=== PATIENT | female | born 1950 | race Caucasian/White ===

== ENCOUNTER → 2018-11-24 | Day surgery (SDC) | payer MEDICARE, OTHER ==
[~2018-11-24] MED LIST: Lactated Ringers 1,000 ML IV SCH; Propofol 200 MG/20 ML SDV IV ONE
--- NOTE | 2018-11-24 13:58 | OR ---
DATE OF OPERATION: 11/24/2018 PREOPERATIVE DIAGNOSIS: POSITIVE COLOGUARD. POSTOPERATIVE DIAGNOSIS: 1. COLON POLYPS X6 WITH ONE LARGE 2 CM RECTAL POLYP. 2. MILD SIGMOID DIVERTICULOSIS. SURGEON: Robinson Nolasco MD PROCEDURE: FULL-LENGTH COLONOSCOPY WITH SNARE POLYPECTOMY X4, FORCEPS POLYP REMOVAL X2. ANESTHESIA: MAC. COMPLICATIONS: None. SPECIMEN: Colon polyps x6. See report. To note, 1 very large tubulovillous lesion in the rectal vault. FINDINGS: 1. Full-length colonoscopy. 2. Mild sigmoid diverticulosis. 3. Colon polyps x6. RECOMMENDATIONS: Followup colonoscopy in 6 months. INDICATIONS: The patient had a positive Cologuard with her primary provider, Evelin Fulton. She has never had a prior endoscopy. Evelin sent her for diagnostic colonoscopy. DESCRIPTION OF PROCEDURE: The patient was prepped and draped and placed in the left lateral decubitus position. A lubricated Olympus colonoscope was inserted and with ease advanced to the cecum. Direct visualization of the ileocecal valve and appendiceal orifice were accomplished. The bowel prep was adequate. Upon withdrawal of the scope, the cecum and ascending colon were benign. At the hepatic flexure and in the proximal transverse colon, the patient had 2 small flat sessile polyps, each removed with a forceps biopsy x2 in their entirety. A third one was in the mid transverse colon, also removed with a forceps. The rest of the transverse colon and descending colon appeared benign. The patient does have scattered diverticula throughout the sigmoid area without any acute inflammatory changes. 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 In that region, we were able to get a snare around it and get down to the bottom of the stalk and removed it without any problem. We brought it out through the rectal vault. Two more reasonably sized polyps were present in the rectal vault as well, also removed with snare and suctioned into polyp trap #1 without any difficulty. The patient appears to have scattered very small hyperplastic polyps right in the proximal rectum as well. We left those alone at this time. Retroflexion of the scope in the rectum showed no perianal lesions. Air was suctioned and the scope removed without complication. MARV/XIOMARA /[id number]
== END ==
LOC: CC.SDS 07:43
PROVIDERS: ATTEND Family Medicine
DX: D12.3 Benign neoplasm of transverse colon (principal); D12.8 Benign neoplasm of rectum; K62.1 Rectal polyp; K57.30 Diverticulosis of large intestine without perforation or abscess without bleeding; I10 Essential (primary) hypertension; I48.91 Unspecified atrial fibrillation; E11.9 Type 2 diabetes mellitus without complications; J43.9 Emphysema, unspecified; Z79.01 Long term (current) use of anticoagulants; Z79.899 Other long term (current) drug therapy
CPT/HCPCS: 00811; 45385; J2704; J7120

== ENCOUNTER 2019-04-15 07:55 | Emergency (ER) | payer MEDICARE, OTHER ==
[2019-04-15] MEDS ORDERED: Furosemide 40 MG/4 ML VIAL ONE (08:18)
[2019-04-15] MEDS ORDERED: Sodium Chloride 0.9% 100 ML ONE ×2 (08:19→09:43)
[2019-04-15] MEDS: Diltiazem 25 MG/5 ML SDV IVPUSH ONE (08:27)
[2019-04-15 08:59] LABS: CHLORIDE,CL 91 mEq/L (98-106); SODIUM,NA 126 mEq/L (136-145)
[2019-04-15] MEDS ORDERED: Cefepime 1 GM in Sodium Chloride 0.9% 50 ML IV ONE (09:31)
[2019-04-15 09:42] LABS: BICARBONATE,ARTERIAL 34.6 mm/L (22.0-26.0); O2 DELIVERY DEVICE NON REBR MASK; O2 SATURATION ARTERIAL 95 % (95-98); PCO2 ARTERIAL 119 mm/Hg0 (35-45); PO2 ARTERIAL 112 mm/Hg (80-100)
--- NOTE | 2019-04-15 09:45 | EDM.PDOC ---
ED HPI GENERAL MEDICAL PROBLEM - General Chief Complaint: Respiratory Problem Stated Complaint: Resp distress Time Seen by Provider: 04/15/19 08:00 Source of Information: Reports: Patient History Limitations: Reports: Altered Mental Status, Respiratory Distress - History of Present Illness INITIAL COMMENTS - FREE TEXT/NARRATIVE: This patient is a 68 year old female that presents to the ER via EMS. EMS reports that patient was awake and alert, then near arrival to the hospital the patient became unresponsive. They report that was short of breath and was complaining of being short of breath when on the ambulance. The reports the patient was fine last night, patient woke him this morning and did report she was short of breath. He reports she looked more short of breath than her usual. reports patient had stopped taking her Lasix the last couple of days because she urinates to much. He reports she also stopped her Eliquis the past day or so. reports she is very stubborn. Upon my arrival into the ER. Patient is HR in 160s irregular. She in respiratory distress, but saturation is 90% on 15L NRB. She appears mottled all over. She is not responding to me verbal, following commands, or responding to painful stimuli of sternal rub. PLEASE REFER TO [facility] REPORT FOR FURTHER DOCUMENTATION. Onset: Today Onset Date: 04/15/19 Severity: Severe Improves with: Reports: None Worsens with: Reports: None Associated Symptoms: Reports: Shortness of Breath - Related Data Allergies Allergy/AdvReac Type Severity Reaction Status Date / Time No Known Allergies Allergy Verified 11/24/18 08:05 Home Meds: Home Meds Acetaminophen [Tylenol] 325 mg PO Q4H PRN 11/21/18 [History] Albuterol [Ventolin HFA] 1 - 2 puff INH Q4H PRN 11/21/18 [History] Apixaban [Eliquis] 5 mg PO BID 11/21/18 [History] Budesonide/Formoterol [Symbicort 160-4.5 MCG] 2 puff INH BID 11/21/18 [History] Diltiazem HCl [Diltiazem ER] 180 mg PO DAILY 11/21/18 [History] Furosemide 40 mg PO BID 11/21/18 [History] Ipratropium/Albuterol Sulfate [Iprat-Albut 0.5-3(2.5) mg/3 ml] 3 ml NEB QID PRN 11/21/18 [History] Metoprolol Tartrate 50 mg PO BID 11/21/18 [History] ED ROS GENERAL - Review of Systems Review Of Systems: Unable To Obtain Reason Not Obtained: Patient is unresponsive. Respiratory Distress: Only ROS SOA EMS. Respiratory: Reports: Shortness of Breath ED EXAM, GENERAL - Physical Exam Exam: See Below Exam Limited By: Respiratory Distress General Appearance: Severe Distress, Obese Eye Exam: Bilateral Eye: Normal Inspection, PERRL Ears: Normal External Exam, Normal Canal, Normal TMs Ear Exam: Bilateral Ear: Auricle Normal, Canal Normal, TM normal Nose: Normal Inspection, No Blood Throat/Mouth: No: Perioral Cyanosis Head: Atraumatic, Normocephalic Neck: Normal Inspection Respiratory/Chest: Respiratory Distress, Crackles (Severe Throughout), Retractions Cardiovascular: Tachycardia, Irregularly Irregular Peripheral Pulses: 1+: Radial (L), Radial (R), Posterior Tibial (L), Posterior Tibial (R), Dorsalis Pedis (L), Dorsalis Pedis (R) GI/Abdominal: Other (Obese) Extremities: Mottled (All extremeties, cool to touch. ) Neurological: Unresponsive Skin Exam: Mottled Course - Orders/Labs/Meds Orders: Active Orders 24 hr Category Date Time Status Chest 1V Frontal [CR] Routine Exams 04/15/19 Taken CULTURE BLOOD [BC] Stat Lab 04/15/19 08:38 Results LACTIC ACID [CHEM] Stat Lab 04/15/19 08:38 Received Labs: Laboratory Tests 04/15/19 04/15/19 04/15/19 Range/Units 08:38 08:38 08:38 WBC 8.2 (5.0-10.0) 10^3/uL RBC 5.76 H (4.00-5.50) 10^6/uL Hgb 18.6 H* (12.0-16.0) g/dL Hct 56.9 H (37.0-47.0) % MCV 98.8 H (82.0-94.0) fL MCH 32.3 H (27.0-32.0) pg MCHC 32.7 L (33.0-38.0) g/dL RDW Coeff of Lexie 14.4 (11.0-15.0) % Plt Count 142 L (150-400) 10^3/uL Neut % (Auto) 87.8 H (35-85) % Lymph % (Auto) 7.5 L (10-55) % [place] % (Auto) 4.7 (0-16) % Eos % (Auto) 0 (0-5) % Baso % (Auto) 0 (0-3) % Neut # (Auto) 7.21 H (1.80-7.00) 10^3/uL Lymph # (Auto) 0.62 L (1.00-4.80) 10^3/uL [place] # (Auto) 0.39 (0.00-0.80) 10^3/uL Eos # (Auto) 0.00 (0.00-0.45) 10^3/uL Baso # (Auto) 0.00 10^3/uL PT 14.3 H (9.7-12.3) SEC INR 1.42 H (0.92-1.18) APTT 24.0 (23.2-32.3) SEC ABG pH (7.35-7.45) ABG pCO2 (35-45) mm/Hg0 ABG pO2 (80-100) mm/Hg ABG HCO3 (22.0-26.0) mm/L ABG O2 Saturation (95-98) % ABG Base Excess (-2.0-3.0) O2 Delivery Device Sodium 126 L (136-145) mEq/L Potassium 5.5 H D (3.5-5.0) mEq/L Chloride 91 L (98-106) mEq/L Carbon Dioxide 27 (21-32) mmol/L BUN 15 (7-18) mg/dL Creatinine 0.9 (0.6-1.0) mg/dL Est Cr Clr Drug Dosing TNP Estimated GFR (MDRD) > 60 (>=60) mL/min Glucose 272 H D (75-99) mg/dL Calcium 8.6 (8.4-10.1) mg/dL Total Bilirubin 0.8 (0.0-1.0) mg/dL AST 65 H (15-37) U/L ALT 39 (12-78) U/L Alkaline Phosphatase 129 H (46-116) U/L Lactate Dehydrogenase 557 H (100-190) U/L Creatine Kinase 778 H (21-215) U/L Troponin I 0.048 (0.00-0.06) ng/mL NT-Pro-B Natriuret Pep 6043 H (0-1000) pg/mL Total Protein 8.6 H (6.4-8.2) g/dL Albumin 3.8 (3.4-5.0) g/dL 04/15/19 Range/Units 09:20 WBC (5.0-10.0) 10^3/uL RBC (4.00-5.50) 10^6/uL Hgb (12.0-16.0) g/dL Hct (37.0-47.0) % MCV (82.0-94.0) fL MCH (27.0-32.0) pg MCHC (33.0-38.0) g/dL RDW Coeff of Lexie (11.0-15.0) % Plt Count (150-400) 10^3/uL Neut % (Auto) (35-85) % Lymph % (Auto) (10-55) % [place] % (Auto) (0-16) % Eos % (Auto) (0-5) % Baso % (Auto) (0-3) % Neut # (Auto) (1.80-7.00) 10^3/uL Lymph # (Auto) (1.00-4.80) 10^3/uL [place] # (Auto) (0.00-0.80) 10^3/uL Eos # (Auto) (0.00-0.45) 10^3/uL Baso # (Auto) 10^3/uL PT (9.7-12.3) SEC INR (0.92-1.18) APTT (23.2-32.3) SEC ABG pH 7.07 L (7.35-7.45) ABG pCO2 119 H (35-45) mm/Hg0 ABG pO2 112 H (80-100) mm/Hg ABG HCO3 34.6 H (22.0-26.0) mm/L ABG O2 Saturation 95 (95-98) % ABG Base Excess 4.0 H (-2.0-3.0) O2 Delivery Device Non rebr mask Sodium (136-145) mEq/L Potassium (3.5-5.0) mEq/L Chloride (98-106) mEq/L Carbon Dioxide (21-32) mmol/L BUN (7-18) mg/dL Creatinine (0.6-1.0) mg/dL Est Cr Clr Drug Dosing Estimated GFR (MDRD) (>=60) mL/min Glucose (75-99) mg/dL Calcium (8.4-10.1) mg/dL Total Bilirubin (0.0-1.0) mg/dL AST (15-37) U/L ALT (12-78) U/L Alkaline Phosphatase (46-116) U/L Lactate Dehydrogenase (100-190) U/L Creatine Kinase (21-215) U/L Troponin I (0.00-0.06) ng/mL NT-Pro-B Natriuret Pep (0-1000) pg/mL Total Protein (6.4-8.2) g/dL Albumin (3.4-5.0) g/dL Meds: Medications Discontinued Medications Generic Name Dose Route Start Last Admin Trade Name Magda PRN Reason Stop Dose Admin Furosemide Confirm 04/15/19 08:18 Lasix Administered 04/15/19 08:19 Dose 80 mg .ROUTE .STK-MED ONE Sodium Chloride Confirm 04/15/19 08:19 Normal Saline Administered 04/15/19 08:20 Dose 100 mls @ as directed .ROUTE .STK-MED ONE Cefepime HCl 1 gm/ Sodium 50 mls @ 100 mls/hr 04/15/19 09:31 Chloride IV 04/15/19 10:00 ONETIME ONE Vancomycin HCl 1 gm/ Sodium 250 mls @ 167 mls/hr 04/15/19 09:31 Chloride IV 04/15/19 11:00 ONETIME ONE Sodium Chloride Confirm 04/15/19 09:43 Normal Saline Administered 04/15/19 09:44 Dose 100 mls @ as directed .ROUTE .STK-MED ONE Lactated Ringer's Confirm 04/15/19 10:08 Ringers, Lactated Administered 04/15/19 10:09 Dose 1,000 mls @ as directed .ROUTE .STK-MED ONE - Radiology Interpretation Free Text/Narrative:: CXR: Pulmonary Edema Departure - Departure Time of Disposition: 09:52 Disposition: DC/Tfer to Acute Hospital 02 Condition: Critical Clinical Impression: Atrial fibrillation with RVR, Respiratory distress Congestive heart failure (CHF) Qualifiers: Heart failure type: combined systolic and diastolic Heart failure chronicity: acute on chronic Qualified Code(s): I50.43 - Acute on chronic combined systolic (congestive) and diastolic (congestive) heart failure - Discharge Information *PRESCRIPTION DRUG MONITORING PROGRAM REVIEWED*: Not Applicable *COPY OF PRESCRIPTION DRUG MONITORING REPORT IN PATIENT [place]: Not Applicable Referrals: PCP,Unknown [Primary Care Provider] - Forms: ED Department Discharge Sepsis Event Note - Focused Exam Date Exam was Performed: 04/15/19 Time Exam was Performed: 11:43 - My Orders Last 24 Hours: My Active Orders 04/15/19 Chest 1V Frontal [CR] Routine 04/15/19 08:38 CULTURE BLOOD [BC] Stat LACTIC ACID [CHEM] Stat - Assessment/Plan Last 24 Hours: My Active Orders 04/15/19 Chest 1V Frontal [CR] Routine 04/15/19 08:38 CULTURE BLOOD [BC] Stat LACTIC ACID [CHEM] Stat Plan: PLEASE SEE RN NOTE FOR PFSH PLEASE SEE [facility] NOTE FOR FURTHER CHARTING AND INTERVENTIONS RISK VS BENEFITS EXPLAINED TO THE WHO HAS ACCEPTED TRANSFER. RISK OF TRANSFER ARE MVC, PLANE CRASH, , WORSENING OF CONDITION. THE RISK OF STAYING IN [place] IS NO SPECIALIST, NO ICU, , WORSENING OF CONDITION. 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 THE BENEFITS OF STAYING IN [place] IS CLOSE TO HOME.
[2019-04-15] MEDS ORDERED: Lactated Ringers 1,000 ML ONE (10:08)
[2019-04-19] MEDS ORDERED: Naloxone 2 MG/2 ML Syringe IVPUSH ONE (13:04)
[2019-04-19] MEDS ORDERED: Diltiazem 100 MG in Sodium Chloride 0.9% 100 ML IV SCH (13:15)
[2019-04-19] MEDS ORDERED: Furosemide 20 MG/2 ML VIAL IVPUSH ONE (13:26)
[2019-04-19] MEDS ORDERED: Furosemide 40 MG/4 ML VIAL IVPUSH ONE (13:27)
[2019-04-19] MEDS ORDERED: Furosemide 20 MG/2 ML VIAL IVPUSH SCH (13:30)
[2019-04-19] MEDS ORDERED: Furosemide 40 MG/4 ML VIAL IVPUSH SCH ×2 (13:30)
== END 2019-04-15 11:05 ==
LOC: CC.ED 07:55
DX: I50.43 Acute on chronic combined systolic (congestive) and diastolic (congestive) heart failure (principal); I48.91 Unspecified atrial fibrillation; R06.03 Acute respiratory distress; Z79.01 Long term (current) use of anticoagulants; Z79.899 Other long term (current) drug therapy
CPT/HCPCS: 31500; 36415; 36600; 51702; 71045; 80053; 82550; 82803; 83615; 83880; 84484; 85025; 85610; 85730; 87040; 92950; 93005; 93010; 96365; 96375; 96376; 99284; 99291-25; 99292; J0692; J1940; J2310; J3370; J3490; J7050